=== PATIENT | female | born 1955 | race Caucasian/White ===

== ENCOUNTER → 2017-08-13 15:53 | Outpatient (CLI) | payer OTHER, SELFPAY ==
[2017-08-13 16:53] LABS: Add Manual Diff / Slide Review NO; Basophils Percent Auto 0.2 % (0-2); Eosinophils Percent Auto 0.2 % (2-4); Hematocrit 40.2 % (36-46); Hemoglobin 13.4 g/dL (12.0-16.0); Lymphocytes Percent Auto 8.2 % (25-40); Mean Corpuscular HGB Conc 33.4 % (30-36); Mean Corpuscular Hemoglobin 29.6 PG (26-34); Mean Corpuscular Volume 88.7 fL (80-100); Monocytes Percent Auto 2.5 % (3-14); Neutrophils Absolute Auto 5800 /uL (3000-5900); Neutrophils Percent Auto 88.9 % (50-75); Platelet Count 199 X10^3/uL (150-400); Red Blood Cell Count 4.54 X10^6/uL (4.0-5.2); Red Cell Distribution Width 13.2 % (11.6-14.8); White Blood Cell Count 6.5 X10^3/uL (4.5-11.0)
[2017-08-13 17:13] LABS: Erythrocyte Sedimentation Rate 5 MM/HR (0-20)
[2017-08-13 17:18] LABS: HEMOLYSIS < 15 (0-50); Iron 32 ug/dL (37-170)
[2017-08-13 17:20] LABS: Alanine Aminotransferase 43 IU/L (9-52); Albumin 4.5 g/dL (3.5-5.0); Albumin Globulin Ratio 1.3 (1.0-2.8); Alkaline Phosphatase 77 U/L (38-126); Aspartate Aminotransferase 43 IU/L (14-36); BUN Creatinine Ratio 23.3 (6-22); Bilirubin Total 0.5 mg/dL (0.2-1.3); Blood Urea Nitrogen 14 mg/dL (7-17); Calcium 9.1 mg/dL (8.4-10.2); Carbon Dioxide 29 mmol/L (22-32); Chloride 100 mmol/L (98-107); Cholesterol 193 mg/dL (140-199); Estimated Glomerular Filt Rate > 60.0 mL/min (>60); Globulin 3.4 g/dL (1.7-4.1); Glucose 91 mg/dL (70-100); HDL Cholesterol 92 mg/dL (40-60); HEMOLYSIS < 15 (0-50); LDL Cholesterol Calculated 86 mg/dL (<100); Phosphorous 3.6 mg/dL (2.5-4.5); Potassium 3.8 mmol/L (3.4-5.1); Sodium 140 mmol/L (137-145); Total Protein 7.9 g/dL (6.3-8.2); Triglycerides 75 mg/dL (35-150); Uric Acid 3.4 mg/dL (2.5-6.2)
[2017-08-13 17:31] LABS: Percent Iron Saturation 9 % (15-50); Total Iron Binding Capacity 337 ug/dL (265-497); Transferrin 269 mg/dL (206-381)
[2017-08-13 17:32] LABS: LDL Cholesterol Direct 93 mg/dL (<100)
[2017-08-13 17:37] LABS: Free T3, Triiodothyronine Free 2.33 pg/mL (2.77-5.27); Free T4, Direct Thyroxine 0.65 ng/dL (0.78-2.19); T4 Total Thyroxine 5.39 ug/dL (5.5-11.0); T7 (Free Thyroxine Index) 1.62 (1.65-3.89)
[2017-08-13 17:50] LABS: Thyroid Stimulating Hormone 1.96 uIU/mL (0.47-4.68)
[2017-08-13 18:27] LABS: Vitamin B12 586 pg/mL (239-931)
[2017-08-17 14:20] LABS: Anti Thyroglobulin Antibody < 1 IU/mL (< 2); Thyroid Peroxidase Antibodies < 1 IU/mL (< 9)
[2017-08-19 17:30] LABS: Triiodothyronine T3 Reverse 20 ng/dL (8-25)
== END ==
PROVIDERS: PCP Registered Nurse; Visit Provider Registered Nurse
DX: E03.9 Hypothyroidism, unspecified (principal); D64.9 Anemia, unspecified; R53.83 Other fatigue
CPT/HCPCS: 36415; 80053; 80061; 82607; 82746; 83540; 83550; 83721; 84100; 84436; 84439; 84443; 84479; 84481; 84482; 84550; 85025; 85651; 86376; 86800

== ENCOUNTER → 2017-09-18 12:16 | Outpatient (CLI) | payer OTHER, SELFPAY ==
[2017-09-18 13:23] LABS: Add Manual Diff / Slide Review NO; Basophils Percent Auto 0.9 % (0-2); Eosinophils Percent Auto 6.6 % (2-4); Hematocrit 38.9 % (36-46); Hemoglobin 12.8 g/dL (12.0-16.0); Lymphocytes Percent Auto 41.6 % (25-40); Mean Corpuscular Hemoglobin 29.2 PG (26-34); Mean Corpuscular Volume 88.6 fL (80-100); Monocytes Percent Auto 7.3 % (3-14); Neutrophils Absolute Auto 2300 /uL (3000-5900); Neutrophils Percent Auto 43.6 % (50-75); Platelet Count 229 X10^3/uL (150-400); Red Blood Cell Count 4.38 X10^6/uL (4.0-5.2); Red Cell Distribution Width 13.9 % (11.6-14.8); White Blood Cell Count 5.3 X10^3/uL (4.5-11.0)
[2017-09-18 14:03] LABS: Ferritin 36.7 ng/mL (11.1-264)
== END ==
PROVIDERS: Family Provider Registered Nurse; PCP Registered Nurse; Visit Provider Registered Nurse
DX: R53.83 Other fatigue (principal); D64.9 Anemia, unspecified; M25.579 Pain in unspecified ankle and joints of unspecified foot
CPT/HCPCS: 36415; 82728; 85025

== ENCOUNTER → 2018-02-26 15:14 | Outpatient (CLI) | payer OTHER, SELFPAY ==
--- NOTE | 2018-02-26 15:17 | DI.RAD.S_ITS ---
PROCEDURE: XR SHOULDER LT MIN 2V INDICATIONS: l shoulder pain TECHNIQUE: 3 views of the shoulder were acquired. COMPARISON: None. FINDINGS: Bones: No fractures or dislocations. No suspicious bony lesions. Visualized ribs appear intact. Soft tissues: No suspicious soft tissue calcifications. IMPRESSION: No fracture. No osseous lesion. If there are persistent symptoms or clinical suspicion for pathology, then repeat radiographs or advanced imaging (CT, MRI or bone scan) should be considered for further evaluation. Dictated by: Kathy Sorensen MD, PhD on 02/26/2018 at 15:25 Approved by: Kathy Sorensen MD, PhD on 02/26/2018 at 15:26
== END ==
PROVIDERS: PCP Registered Nurse; Visit Provider Physician Assistant
DX: M25.512 Pain in left shoulder (principal)
CPT/HCPCS: 73030

== ENCOUNTER → 2018-03-17 08:45 | Outpatient (CLI) | payer OTHER, SELFPAY ==
--- NOTE | 2018-03-17 08:46 | DI.MRI.S_ITS ---
PROCEDURE: MR SHOULDER LT WO CON INDICATIONS: L shoulder pain TECHNIQUE: Noncontrast oblique coronal T2 fast spin echo with fat saturation, oblique sagittal T1 spin echo and T2 fast spin echo with fat saturation, axial T1 spin echo and T2 fast spin echo with fat saturation through the shoulder. COMPARISON: [facility], CR, XR SHOULDER LT MIN 2V, 02/26/2018, 15:21. FINDINGS: Image quality: Excellent. Rotator cuff: No full-thickness tear the rotator cuff is identified. There is increased signal and mild thickening involving the supraspinatus and infraspinatus tendons. There are areas of low-grade partial-thickness tearing identified along the articular surface of the distal supraspinatus tendon and bursal surface of the distal supraspinatus tendon (image 11, series 3). No significant tearing of the infraspinatus tendon is present. The subscapularis and teres minor tendons are intact. No significant atrophy is evident involving rotator cuff muscles. Bones and bursae: There is no acute fracture, dislocation, or suspicious osseous lesion identified involving the osseous structures of the shoulder. There are early degenerative changes of the glenohumeral joint. Mild degenerative changes of the chronic clavicular joint are present with associated moderate down sloping of the lateral acromion. There is a small glenohumeral joint effusion. A small amount of fluid is contained within the subacromial subdeltoid bursa. Capsule and soft tissues: Evaluation of the labrum and glenohumeral ligaments is difficult without intra-articular contrast. However, there is thickening and increased signal identified involving the inferior glenohumeral ligament with edema noted within the adjacent axillary pouch soft tissues. A small superior labral tear appears to be present extending from approximately the 11 o'clock position (anterosuperior) to the 3 o'clock position (posterior). No detached labral fragments are appreciated. The long head of the biceps tendon is normally positioned within the bicipital groove. There is increased signal identified involving the intra-articular portion of this tendon. No significant tearing is appreciated. There appear to be areas of thickening involving the joint capsule. IMPRESSION: 1. Low-grade partial-thickness tearing and tendinopathy of the supraspinatus tendon. 2. Mild infraspinatus tendinopathy. 3. Small posterosuperior labral tear may extend into the biceps anchor to increase signal of the biceps tendon and a corresponding tendinopathy. 4. Mild degenerative changes of the glenohumeral and acromioclavicular joints. Lateral acromial downsloping may be resulting in subacromial impingement, in the correct clinical setting. 5. Inferior glenohumeral ligament sprain. The possibility of a perforating tear is difficult to exclude. 6. Questionable capsular thickening. Please correlate clinically to exclude adhesive capsulitis. Dictated by: Huber Whittington M.D. on 03/17/2018 at 9:13 Approved by: Huber Whittington M.D. on 03/17/2018 at 9:17
== END ==
PROVIDERS: Family Provider Registered Nurse; PCP Registered Nurse; Visit Provider Physician Assistant
DX: M25.512 Pain in left shoulder (principal); S43.492A Other sprain of left shoulder joint, initial encounter; M75.112 Incomplete rotator cuff tear or rupture of left shoulder, not specified as traumatic; M19.012 Primary osteoarthritis, left shoulder
CPT/HCPCS: 73221

== ENCOUNTER → 2024-10-21 11:20 | Outpatient (CLI) | payer OTHER, SELFPAY ==
[2024-10-21 11:52] LABS: Add Manual Diff / Slide Review NO; Hematocrit 37.9 % (36-46); Hemoglobin 12.8 g/dL (12.0-16.0); Lymphocytes Absolute Auto 2100 /uL (1100-4500); Mean Corpuscular HGB Conc 33.7 % (30-36); Mean Corpuscular Hemoglobin 29.3 PG (26-34); Mean Corpuscular Volume 87.1 fL (80-100); Platelet Count 166 X10^3/uL (150-400)
[2024-10-21 12:11] LABS: Alanine Aminotransferase 23 IU/L (<35); Albumin 4.4 g/dL (3.5-5.0); Albumin Globulin Ratio 1.6 (1.0-2.8); Alkaline Phosphatase 91 U/L (38-126); Blood Urea Nitrogen 8 mg/dL (7-17); Calcium 9.1 mg/dL (8.4-10.2); Carbon Dioxide 27 mmol/L (22-32); Chloride 100 mmol/L (98-107); Cholesterol 184 mg/dL (140-199); Estimated Glomerular Filt Rate > 60 mL/min (>60); Globulin 2.7 g/dL (1.7-4.1); Glucose 98 mg/dL (70-99); HDL Cholesterol 102 mg/dL (40-60); HEMOLYSIS < 15 (0-50); Potassium 3.8 mmol/L (3.4-5.1); Sodium 136 mmol/L (137-145); Total Protein 7.1 g/dL (6.3-8.2); Triglycerides 84 mg/dL (35-150)
[2024-10-21 12:29] LABS: Free T3, Triiodothyronine Free 2.83 pg/mL (2.77-5.27); Free T4, Direct Thyroxine 1.02 ng/dL (0.78-2.19)
[2024-10-21 12:43] LABS: Thyroid Stimulating Hormone 1.87 uIU/mL (0.47-4.68)
== END ==
PROVIDERS: Family Provider Registered Nurse; PCP Naturopath; Referring Provider Naturopath; Visit Provider Naturopath
DX: Z00.00 Encounter for general adult medical examination without abnormal findings (principal); E03.9 Hypothyroidism, unspecified
CPT/HCPCS: 36415; 80053; 80061; 84439; 84443; 84481; 85025

== ENCOUNTER → 2025-02-12 14:21 | Outpatient (CLI) | payer OTHER, SELFPAY ==
--- NOTE | 2025-02-12 14:23 | DI.RAD.S_ITS ---
PROCEDURE: XR DEXA AXIAL SKELETON INDICATIONS: Osteoporosis screening COMPARISON: None. FINDINGS: Lumbar Spine: Bone mineral density 0.684 g/cm2, T score -3.3,. Left Femoral Neck: Bone mineral density 0.493 g/cm2, T score -3.2. Left Hip: Bone mineral density 0.664 g/cm2, T score -2.3,. Fracture Risk Calculation (when applicable): 10-year fracture risk of a major osteoporotic fracture 16 percent and of a hip fracture 5.1 percent. (T score greater or equal to -1.0 to: NORMAL) (T score from -1.1 to -2.4: OSTEOPENIA) (T score less than or equal to -2.5: OSTEOPOROSIS) IMPRESSION: Osteoporosis Follow-up guidelines as follows: Osteoporosis: Consider a repeat DEXA and Vertebral Fracture Assessment (VFA) exam in 2 years or sooner if medically necessary, to reassess this patient's status. Osteopenia: Consider a repeat DEXA in 2-3 years to reassess this patient's status, or if there is a new clinical indication. Normal: Consider a repeat DEXA in 5 years or sooner, or if there is a new clinical indication. All treatment decisions require clinical judgment and consideration of individual patient factors, including patient preferences, comorbidities, previous drug use, risk factors not captured in the FRAX model (e.g., frailty, falls, vitamin D deficiency, increased bone turnover, interval significant decline in bone density ) and possible under- or over-estimation of fracture risk by FRAX. In addition, the NOF Guide recommends that FDA-approved medical therapies be considered in postmenopausal women and men age >= 50 years with a: * Hip or vertebral (clinical or morphometric) fracture * T-score of <=-2.5 at the spine or hip * Ten-year fracture probability by FRAX of >= 3% for hip fracture or >=20% for major osteoporotic fracture. Dictated by: Terrence Redmond M.D. on 02/12/2025 at 15:48 Approved by: Terrence Redmond M.D. on 02/12/2025 at 15:49
== END ==
LOC: RAD 14:22
PROVIDERS: Family Provider Registered Nurse; PCP Naturopath; Referring Provider Naturopath; Visit Provider Naturopath
DX: Z13.820 Encounter for screening for osteoporosis (principal); M81.0 Age-related osteoporosis without current pathological fracture
CPT/HCPCS: 77080